=== PATIENT | male | born 1995 | race Caucasian/White ===

== ENCOUNTER 2016-07-20 11:19 | Emergency (ER) | payer MEDICARE | END 2016-07-20 12:30 | disposition home or self-care (01) | LOC: ER 11:19 | DX: J06.9 Acute upper respiratory infection, unspecified (principal); J01.90 Acute sinusitis, unspecified; R05 Cough; R51 Headache; F17.210 Nicotine dependence, cigarettes, uncomplicated | CPT/HCPCS: 87070; 87400; 87880; 99283 ==